=== PATIENT | male | born 1955 | race Two or more races ===

== ENCOUNTER 2018-08-11 12:37 | Emergency (ER) | payer OTHER ==
[~2018-08-11] VITALS: Ht 170.2 cm; Wt 69.4 kg
--- NOTE | 2018-08-11 13:00 | NUR ---
SEND BY PMD FOR FOR CT NECK TO R/O TRACHEAL STENOSIS. PT AAOX3, VSS. DENIES NECK PAIN, CP, SOB, DIZZINESS, N/V @ THIS TIME. PT SEEN & EVAL'D BY DR. DOWNING. WILL CONT TO MONITOR.
--- NOTE | 2018-08-11 14:07 | NUR ---
PT SITTING UP ON GURNEY. NO RESP DISTRESS NOTED & WILL CONT TO MONITOR.
--- NOTE | 2018-08-11 15:40 | NUR ---
[employer] TIME [id number] TRIP #: [id number]
--- NOTE | 2018-08-11 16:03 | NUR ---
Patient discharged to home in stable condition. Written and verbal after care instructions given. Patient verbalizes understanding of instruction.
[2018-08-11 16:05] VITALS: BP 132/77
== END 2018-08-11 16:06 | disposition home or self-care (01) ==
LOC: ER 12:40
DX: I71.2 Thoracic aortic aneurysm, without rupture (principal); E04.1 Nontoxic single thyroid nodule; E11.9 Type 2 diabetes mellitus without complications; I10 Essential (primary) hypertension; G93.40 Encephalopathy, unspecified; Z43.0 Encounter for attention to tracheostomy
CPT/HCPCS: 70490; 99284; A4606; Z7610